=== PATIENT | female | born 1950 | race African-American/Black ===

== ENCOUNTER 2018-10-23 05:56 | Day surgery (SDC) | payer MEDICARE, MEDICAID ==
[2018-10-16 10:54] LABS: BASOPHILS % (AUTO) 1.2 % (0.0-2.0); EOSINOPHILS % (AUTO) 2.4 % (0.0-3.0); HEMATOCRIT 44.8 % (37.0-47.0); HEMOGLOBIN 14.6 G/DL (12.0-16.0); LYMPHOCYTES % (AUTO) 30.9 % (20.0-45.0); MEAN CORPUSCULAR VOLUME 97 FL (80-99); MONOCYTES % (AUTO) 5.9 % (1.0-10.0); NEUTROPHILS % (AUTO) 59.7 % (45.0-75.0); PLATELET COUNT 227 K/UL (150-450); RED BLOOD COUNT 4.59 M/UL (4.20-5.40); RED CELL DISTRIBUTION WIDTH 11.7 % (11.6-14.8); WHITE BLOOD COUNT 8.6 K/UL (4.8-10.8)
[2018-10-16 11:13] LABS: ANION GAP 8 mmol/L (5-15); BLOOD UREA NITROGEN 15 mg/dL (7-18); CALCIUM 10.1 MG/DL (8.5-10.1); CARBON DIOXIDE 29 MMOL/L (21-32); CHLORIDE 102 MMOL/L (98-107); CREATININE 0.8 MG/DL (0.55-1.30); POTASSIUM 4.1 MMOL/L (3.5-5.1); SODIUM 139 MMOL/L (136-145)
--- NOTE | 2018-10-16 19:36 | Cardiology Report ---
APPROVED REPORT EKG Measurement Heart [id number] Sinus bradycardia Otherwise normal ECG
--- NOTE | 2018-10-20 11:55 | Opthalmology H&P ---
Ophthalmology H&P H&P Chief Complaint: decreased vision in right eye HPI Vision Affects Ability to: read, manage personal affairs HPI Narrative Blurry Vision Exam Visual Acuity: OD 20/50 OS 20/40 Tension: OD 17 OS 18 Eye Exam: normal OU: external exam, palpebral fissure-width, marginal reflex distance, levator function, corneas, anterior chambers, fundus exam; findings: lens - Cortical Cataracts OU Assessment/Plan Treatment Plan: cataract extraction w/ lens implant Goals of Treatment: improvement of vision, enhance quality of life Attestation Attestation The risks and benefits of the surgery as well as alternative procedures were explained to the patient in detail. Farooq Torres MD Oct 20, 2018 11:55
--- NOTE | 2018-10-20 11:58 | Pre-Procedure Note/Attestation ---
Pre-Procedure Note/Attestation Complete Prior to Procedure Planned Procedure: right Procedure Narrative: Cataract Extraction With Intraocular Lens Implant Right Eye Indications for Procedure Pre-Operative Diagnosis: Cortical Cataract Right Eye Attestation I attest that I discussed the nature of the procedure; its benefits; risks and complications; and alternatives (and the risks and benefits of such alternatives ), prior to the procedure, with the patient (or the patient's legal business center representative). I attest that, if there was a reasonable possibility of needing a blood transfusion, the patient (or the patient's legal business center representative) was given the [facility] standardized written summary, pursuant to the Ram[place] Blood Safety Act ([place] Health and Safety Code # 1645, as amended). I attest that I re-evaluated the patient just prior to the surgery and that there has been no change in the patient's H&P, except as documented below: Farooq Torres MD Oct 20, 2018 11:58
[2018-10-23] VITALS (10 sets, daily range): BP systolic 15–149; BP diastolic 1–72
[~2018-10-23] VITALS: Ht 171.4 cm; Wt 79.4 kg
[~2018-10-23 05:56] MED LIST: AMLODIPINE BESY10 MG ORAL; HYDROCHLOROTH12.5 M2 ORAL; LISINOPRIL20 MG ORAL; MELOXICAM15 MG PO
[2018-10-23] MEDS: Cyclopentolate 1% Opth Sol 2ml RIGHT EYE SCH ×3 (06:21→06:47)
[2018-10-23] MEDS: Tropicamide 1% Opth 15ml Soln RIGHT EYE SCH ×3 (06:22→06:48)
[2018-10-23] MEDS: Phenylephrine 10% Opth Soln 5ml RIGHT EYE SCH ×3 (06:24→06:48)
[2018-10-23] MEDS: Tobramycin Op Soln 0.3% 5ml RIGHT EYE SCH ×3 (06:24→06:48)
[2018-10-23] MEDS ORDERED: Pilocarpine 1% Opth 15ml Soln ONE (07:00)
[2018-10-23] MEDS ORDERED: Dexamethasone 4mg/ml vial ONE (07:00)
[2018-10-23] MEDS ORDERED: Diclofenac Sod 0.1% Op Soln RIGHT EYE SCH (07:00)
[2018-10-23] MEDS ORDERED: Akten 3.5% 1ml Btl RIGHT EYE ONE (07:00)
[2018-10-23] MEDS ORDERED: Pred Forte 1% Opth Susp 1ml ONE (07:00)
[2018-10-23] MEDS ORDERED: Maxitrol Opth Oint 3.5gm ONE (07:00)
[2018-10-23] MEDS ORDERED: Tetracaine 0.5% Opth 4ml Soln RIGHT EYE ONE (07:00)
[2018-10-23] MEDS ORDERED: Proparacaine 0.5% Opth Soln 15ml RIGHT EYE ONE (07:00)
--- NOTE | 2018-10-23 08:20 | Anethesia Preoperative Eval ---
Anesthesia Pre-op PMH/ROS General Date of Evaluation: Oct 23, 2018 Time of Evaluation: 08:09 Anesthesiologist: Carlo ASA Score: ASA 2 Mallampati Score Class I : Soft palate, uvula, fauces, pillars visible Class II: Soft palate, uvula, fauces visible Class III: Soft palate, base of uvula visible Class IV: Only hard plate visible Mallampati Classification: Class II Surgeon: Melissa Diagnosis: R eye cataracrt Surgical Procedure: R eye cataract extraction Anesthesia History: none Social History: smoking - h/o Family History: no anesthesia problems Allergies: Coded Allergies: No Known Allergies (Unverified , 10/16/18) Medications: see eMAR Patient NPO?: Yes Past Medical History Cardiovascular: Reports: HTN; Denies: CAD, OR, valve dz, arrhythmia, other Pulmonary: Denies: asthma, COPD, SHELLI, other Gastrointestinal/Genitourinary: Reports: GERD; Denies: CRI, ESRD, other Neurologic/Psychiatric: Denies: dementia, CVA, depression/anxiety, TIA, other Endocrine: Denies: DM, hypothyroidism, steroids, other HEENT: Reports: cataract (L), cataract (R); Denies: glaucoma, NENANA (L), NENANA (R), other Hematology/Immune: Denies: anemia, DVT, bleeding disorder, other Musculoskeletal/Integumentary: Denies: OA, RA, DJD, DDD, edema, other PMH Narrative: as above PSxH Narrative: Cholecystectomy Anesthesia Pre-op Phys. Exam Physician Exam Last Vital Signs Date Time Temp Pulse Resp B/P (MAP) Pulse Ox O2 Delivery O2 Flow Rate FiO2 10/23/18 06:29 97.7 66 20 148/70 100 Room Air Constitutional: NAD Neurologic: CN 2-12 intact Cardiovascular: RRR, no M/R/G Respiratory: CTA Gastrointestinal: other Airway Exam Mallampati Score: Class II MO: full Neck: flexible ROM: full Teeth: missing Dentures: no upper, no lower Anesthesia Pre-op A/P Labs see chart Studies Pre-op Studies: EKG - NSR Risk Assessment & Plan Assessment: ASA 2 Plan: MAC Status Change Before Surgery: No Pre-Antibiotics Drug: Nathan Cook MD Oct 23, 2018 08:20
[2018-10-23] MEDS ORDERED: Midazolam 2mg/2ml Inj ONE (08:23)
[2018-10-23] MEDS ORDERED: LR 1000ml ONE (08:30)
[2018-10-23] MEDS ORDERED: Propofol 200mg/20ml IV ONE (08:30)
[2018-10-23] MEDS ORDERED: Sterile Water Irrig 1000ml IRRIG ONE (08:30)
[2018-10-23] MEDS ORDERED: fentaNYL 100 mcg/2 mL IV ONE (08:30)
[2018-10-23] MEDS ORDERED: NS Irrig 1000ml ONE (08:30)
[2018-10-23] MEDS ORDERED: LR 1000ml 1,000 ML IVLG SCH (08:38)
[2018-10-23] MEDS ORDERED: fentaNYL 100 mcg/2 mL IV PRN (08:45)
--- NOTE | 2018-10-23 09:02 | Immediate Post-Op Evaluation ---
Immediate Post-Op Evalulation Immediate Post-Op Evalulation Procedure: R eye cataract extraction with IOL Date of Evaluation: Oct 23, 2018 Time of Evaluation: 09:01 IV Fluids: 300 Blood Products: none Estimated Blood Loss: none Urinary Output: none Blood Pressure Systolic: 149 Blood Pressure Diastolic: 68 Pulse Rate: 76 Respiratory Rate: 20 O2 Sat by Pulse Oximetry: 98 Temperature (Fahrenheit): 97.6 Pain Score (1-10): 1 Nausea: No Vomiting: No Complications none Patient Status: awake, patent, none Hydration Status: adequate Nathan Matos MD Oct 23, 2018 09:02
--- NOTE | 2018-10-23 10:25 | 48 Hour Post Anesthesia Eval ---
Post Anesthesia Evaluation Procedure: R eye cataract extraction with IOL Date of Evaluation: Oct 23, 2018 Time of Evaluation: 10:24 Blood Pressure Systolic: 122 0: 64 Pulse Rate: 62 Respiratory Rate: 20 Temperature (Fahrenheit): 97.6 O2 Sat by Pulse Oximetry: 97 Airway: patent Nausea: No Vomiting: No Pain Intensity: 1 Hydration Status: adequate Cardiopulmonary Status: stable Mental Status/LOC: patient returned to baseline Follow-up Care/Observations: n/a Post-Anesthesia Complications: none Follow-up care needed: ready to discharge Nathan Matos MD Oct 23, 2018 10:25
[2018-10-23] MEDS ORDERED: BSS 15ml BTL ONE (10:36)
[2018-10-23] MEDS ORDERED: Sodium Hyaluronate 14 mg/ml 0.85ml ONE (10:36)
[2018-10-23] MEDS ORDERED: EPINEPHrine 1mg/1ml Amp ONE (10:36)
[2018-10-23] MEDS ORDERED: Povidone-Iodine 5% opth solution ONE (10:36)
[2018-10-23] MEDS ORDERED: BSS 500ml btl ONE (10:36)
--- NOTE | 2018-10-23 16:00 | Pre-op HX & Phy Repo 2 SIG ---
DATE OF ADMISSION: 10/23/2018 ANTICIPATED DATE OF SURGERY: Date of surgery scheduled for October 23, 2018. REASON FOR EVALUATION: I was asked by Dr. Farooq Torres to see this 68-year-old female, who is going for elective surgery on the right eye. The patient has cortical cataract of right eye. Please see Ophthalmology History and Physical by Dr. Farooq Torres. PAST MEDICAL HISTORY/REVIEW OF SYSTEMS: Remarkable for hypertension. No heart attack. No stroke. No diabetes. No history of renal insufficiency. No anemia. No respiratory problem. PAST SURGICAL HISTORY: Cholecystectomy. FAMILY HISTORY: Remarkable for mother has hypertension possibly at age of 91 and father from stroke. ALLERGIES: Not known. PRESENT MEDICATIONS: Include amlodipine 10 mg, hydrochlorothiazide, lisinopril 25 mg, meloxicam 15 mg. HABITS: The patient smokes 1 to 8 cigarettes a day. Alcohol occasionally. Street drugs, no. PHYSICAL EXAMINATION: GENERAL: The patient is alert, well-developed, well-nourished female, in her 60s. No acute distress. VITAL SIGNS: Blood pressure 141/72, temperature 96.9, pulse 63, respiration 18, and O2 saturation 99% on room air. SKIN: Warm, clear, dry. No rashes or ulcers. HEENT: Head normocephalic, atraumatic. Eyes, full description per Dr. Farooq Torres. Mouth, no dentures. NECK: No jugular venous distention. Carotids artery +2. Supple. LUNGS: Clear to auscultation and percussion. No rales or rhonchi. HEART: Sinus regular rhythm. No murmur. No S3, S4. ABDOMEN: Soft, benign. Liver and spleen not enlarged. No palpable mass. EXTREMITIES: No edema. No varicose veins. GENITOURINARY TRACT: No dysuria or CVA tenderness. LABORATORY AND DIAGNOSTIC DATA: ECG, normal sinus, bradycardia, rate 58 per minute, otherwise normal ECG. The patient did not eat or drink to be NPO after midnight of Tuesday. Lab work pending. IMPRESSION: 1. Cataract, right eye. 2. Hypertension, controlled. 3. Sinus bradycardia by EKG, asymptomatic. PLAN: Cataract extraction, right eye, with intraocular lens implant per Dr. Farooq Torres. CONCLUSION: The patient is asymptomatic. She has history of hypertension, which is controlled. The patient's EKG is normal. The patient's condition optimized for surgery. Thank you very much, Dr. Torres, for privilege to participate in presurgical care of this interesting patient. Heavenly Alexis M.D. DR: Javi JOB#: [id number] CC:
--- NOTE | 2018-10-24 12:45 | Brief Operative Note ---
Immediate Post Operative Note Operative Note Chief Complaint: blurry vision Pre-op Diagnosis: Cortical Cataract Right Eye Procedure: phaco with IOL Post-op Diagnosis: Pseudophakia Post-op Diagnosis: same as pre-op Findings: consistent w/pre-op dx studies Surgeon: Melissa Anesthesiologist: Carlo Anesthesia: MAC Specimen: none Complications: none Condition: stable Fluids: LR Estimated Blood Loss: none Drains: none Implant(s) used?: Yes Farooq Torres MD Oct 24, 2018 12:45
--- NOTE | 2018-10-24 12:46 | Operative Note - PDOC ---
Operative Note Operative Note Date of Operation/Procedure: Oct 23, 2018 Chief Complaint: blurry vision Pre-op Diagnosis: Cortical Cataract Right Eye Procedure: phaco with IOL Post-op Diagnosis: Pseudophakia Post-op Diagnosis: same as pre-op Operative Findings: consistent w/pre-op dx studies Surgeon: Melissa Anesthesiologist: Carlo Anesthesia: MAC Specimen: none Complications: none Condition: stable Fluids: LR Estimated Blood Loss: none Drains: none Implant(s) used?: Yes Indications for Procedure cataract Description of Procedure This patient has been complaining visually significant cataract in the affected eye with the best corrected visual acuity under moderate glare conditions worse. The patient complains of difficulties with glare in performing activities of daily living and wants to manage personal affairs with comfort and accuracy and see well enough to move with safety at home and outdoors. The risks, benefits and alternatives of the procedure were discussed with the patient in the office prior to scheduling surgery. All questions from the patient were answered after the surgical procedure was explained in detail. The risks of the procedure as explained to the patient include, but are not limited to, pain, infection, bleeding, loss of vision, retinal detachment, need for further surgery, loss of lens nucleus, double vision, etc. Alternative procedures were discussed which include, to do nothing or seek a second opinion. Informed consent for this procedure was obtained from the patient. The patient was referred to a primary care physician for a cardiopulmonary clearance prior to surgery, after proper evaluation was done patient was properly scheduled for outpatient surgery. The patient was brought to the operating room where the anesthesiologist established I.V. lines and cardiac monitoring leads. Mild intravenous sedation was administered. The patient was then prepared with a 5% solution of povidone -iodine to the conjunctival fornix and lashes, and a 5% solution of povidone- iodine to the lids and periorbital skin. The patient was then draped in the usual sterile fashion. A lid speculum was then placed in the operative eye. A keratome blade was then used to create a biplanar incision into the anterior chamber. Viscoelastics was then instilled into the anterior chamber. A curvilinear capsulorrhexis was then fashioned with an utrata forceps. BSS and a G 27 cannula was used hydrodissection and hydro delineation the lens nucleus. Paracentesis incision was made at 3 o'clock with sharp blade. The phacoemulsification unit, after being properly adjusted and tested, was then used to emulsify the nucleus. Residual cortical material was aspirated with the irrigation and aspiration unit. Healon was then instilled into the anterior chamber. The corneal wound was then enlarged to the size of the optic with the meme keratome blade. The intraocular lens was then inspected for right power and size and thought to be satisfactory. Then the lens was gently placed in the capsular bag. Positioning within the capsular bag was confirmed by direct visualization. Optic centration was accomplished with a Sinskey hook. Viscoelastics was removed from the anterior chamber using the irrigation and aspiration unit. The corneal wound was then tested for leaks and none were found. The lid speculum were then removed. Sponge and needle counts were correct. An eye patch and shield were placed over the operative eye. The patient was taken to the recovery room in stable condition. There were no complications. The patient tolerated the procedure well. The patient was then transferred to the ambulatory surgery unit in stable and satisfactory condition , was given detailed written instructions and asked to follow up in the office the next day. Farooq Torres MD Oct 24, 2018 12:46
== END 2018-10-23 10:10 | disposition home or self-care (01) ==
LOC: SUR 05:56
DX: H25.011 Cortical age-related cataract, right eye (principal); I10 Essential (primary) hypertension; R00.1 Bradycardia, unspecified; F17.210 Nicotine dependence, cigarettes, uncomplicated; Z79.899 Other long term (current) drug therapy; Z90.49 Acquired absence of other specified parts of digestive tract; Z82.49 Family history of ischemic heart disease and other diseases of the circulatory system; Z82.3 Family history of stroke; K21.9 Gastro-esophageal reflux disease without esophagitis
CPT/HCPCS: 36415; 66984; 80048; 85025; 93005; J0171; J1100; J2250; J2704; J3010; J3370; V2632; 94003; 94150

== ENCOUNTER 2018-12-29 05:47 | Day surgery (SDC) | payer MEDICARE, MEDICAID ==
--- NOTE | 2018-12-28 14:49 | Opthalmology H&P ---
Ophthalmology H&P H&P Chief Complaint: decreased vision in left eye HPI Vision Affects Ability to: read, manage personal affairs HPI Narrative Blurry vision Exam Visual Acuity: OD 20/30 OS 20/100 Tension: OD 21 OS 19 Eye Exam: normal OU: external exam, palpebral fissure-width, marginal reflex distance, levator function, corneas, anterior chambers, lens - Cortical Cataract OS, fundus exam; findings: lens - Cortical Cataract OS Assessment/Plan Treatment Plan: cataract extraction w/ lens implant Goals of Treatment: improvement of vision, enhance quality of life Attestation Attestation The risks and benefits of the surgery as well as alternative procedures were explained to the patient in detail. Farooq Torres MD Dec 28, 2018 14:49
--- NOTE | 2018-12-28 14:50 | Pre-Procedure Note/Attestation ---
Pre-Procedure Note/Attestation Complete Prior to Procedure Planned Procedure: left Procedure Narrative: Cataract extraction with intraocular lens implant left eye Indications for Procedure Pre-Operative Diagnosis: Cortical Cataract left eye Attestation I attest that I discussed the nature of the procedure; its benefits; risks and complications; and alternatives (and the risks and benefits of such alternatives ), prior to the procedure, with the patient (or the patient's legal inside sales account representative). I attest that, if there was a reasonable possibility of needing a blood transfusion, the patient (or the patient's legal inside sales account representative) was given the [facility] standardized written summary, pursuant to the Ramírez [place] Blood Safety Act ([place] Health and Safety Code # 1645, as amended). I attest that I re-evaluated the patient just prior to the surgery and that there has been no change in the patient's H&P, except as documented below: Farooq Torres MD Dec 28, 2018 14:50
[~2018-12-29] VITALS: Ht 172.7 cm; Wt 83.9 kg
[2018-12-29] VITALS (8 sets, daily range): BP systolic 120–146; BP diastolic 67–73
[2018-12-29] MEDS ORDERED: Maxitrol Opth Oint 3.5gm ONE (07:00)
[2018-12-29] MEDS ORDERED: Tetracaine 0.5% Opth 4ml Soln LEFT EYE ONE (07:00)
[2018-12-29] MEDS ORDERED: Pilocarpine 1% Opth 15ml Soln ONE (07:00)
[2018-12-29] MEDS ORDERED: Akten 3.5% 1ml Btl LEFT EYE ONE (07:00)
[2018-12-29] MEDS ORDERED: Proparacaine 0.5% Opth Soln 15ml LEFT EYE ONE (07:00)
[2018-12-29] MEDS ORDERED: Dexamethasone 4mg/ml vial ONE (07:00)
[2018-12-29] MEDS ORDERED: Pred Forte 1% Opth Susp 1ml ONE (07:00)
[2018-12-29] MEDS: Phenylephrine 10% Opth Soln 5ml LEFT EYE SCH ×3 (07:06→07:32)
[2018-12-29] MEDS: Tobramycin Op Soln 0.3% 5ml LEFT EYE SCH ×3 (07:06→07:32)
[2018-12-29] MEDS: Diclofenac Sod 0.1% Op Soln LEFT EYE SCH ×3 (07:06→07:32)
[2018-12-29] MEDS: Tropicamide 1% Opth 15ml Soln LEFT EYE SCH ×3 (07:06→07:32)
[2018-12-29] MEDS: Cyclopentolate 1% Opth Sol 2ml LEFT EYE SCH ×3 (07:06→07:32)
[2018-12-29] MEDS ORDERED: Carbachol 0.01% Op Soln 1.5ml vial ONE (07:19)
[2018-12-29] MEDS ORDERED: EPINEPHrine 1mg/1ml Amp ONE (07:19)
[2018-12-29] MEDS ORDERED: Lidocaine 4% Amp ONE (07:19)
[2018-12-29] MEDS ORDERED: Lidocaine 2% MPF 5ml Vial INJ ONE (07:19)
[2018-12-29] MEDS ORDERED: acetaZOLAMIDE 500mg Inj ONE (07:19)
[2018-12-29] MEDS ORDERED: BSS 500ml btl ONE (07:20)
[2018-12-29] MEDS ORDERED: Sodium Hyaluronate 14 mg/ml 0.85ml ONE (07:21)
[2018-12-29] MEDS ORDERED: BSS 15ml BTL ONE (07:21)
[2018-12-29] MEDS ORDERED: Povidone-Iodine 5% opth solution ONE (07:21)
[2018-12-29] MEDS ORDERED: Bupivacaine 0.75% 30ml vial INJ ONE (07:21)
--- NOTE | 2018-12-29 07:55 | Anethesia Preoperative Eval ---
Anesthesia Pre-op PMH/ROS General Date of Evaluation: Dec 29, 2018 Time of Evaluation: 07:52 Anesthesiologist: mariajose ASA Score: ASA 3 Mallampati Score Class I : Soft palate, uvula, fauces, pillars visible Class II: Soft palate, uvula, fauces visible Class III: Soft palate, base of uvula visible Class IV: Only hard plate visible Mallampati Classification: Class II Surgeon: katie Diagnosis: cortical cataract left eye Surgical Procedure: cataract extraction w/ iol implant left eye Anesthesia History: none Social History: current smoker Family History: no anesthesia problems Allergies: Coded Allergies: No Known Allergies (Unverified , 10/16/18) Medications: see eMAR Patient NPO?: Yes Past Medical History Cardiovascular: Reports: HTN, arrhythmia - sinus bradycardia PSxH Narrative: cataract extraction, cholecystectomy, tonsillectomy Anesthesia Pre-op Phys. Exam Physician Exam Last Vital Signs Date Time Temp Pulse Resp B/P (MAP) Pulse Ox O2 Delivery O2 Flow Rate FiO2 12/29/18 07:22 Room Air 12/29/18 07:13 96.6 61 18 120/73 95 Constitutional: NAD Neurologic: CN 2-12 intact Cardiovascular: RRR Respiratory: CTA Gastrointestinal: S/NT/ND Airway Exam Mallampati Score: Class II MO: limited Neck: flexible TMD: 2fb ROM: limited Anesthesia Pre-op A/P Studies Pre-op Studies: EKG - sinus bradycardia Risk Assessment & Plan Assessment: asa3 Plan: mac Status Change Before Surgery: No Pre-Antibiotics Drug: Ermelinda Srivastava MD Dec 29, 2018 07:55
[2018-12-29] MEDS ORDERED: Midazolam 2mg/2ml Inj IVP PRN (08:00)
[2018-12-29] MEDS ORDERED: DiphenhydrAMINE 50mg/ml Inj IVP PRN (08:00)
[2018-12-29] MEDS ORDERED: Atropine Inj 1mg/10ml Syr IV PRN (08:00)
[2018-12-29] MEDS ORDERED: fentaNYL 100 mcg/2 mL IV PRN (08:00)
[2018-12-29] MEDS ORDERED: fentaNYL 100 mcg/2 mL IV ONE (08:30)
[2018-12-29] MEDS ORDERED: LR 1000ml ONE (08:30)
[2018-12-29] MEDS ORDERED: NS Irrig 1000ml ONE (08:30)
[2018-12-29] MEDS ORDERED: Sterile Water Irrig 1000ml IRRIG ONE (08:30)
[2018-12-29] MEDS ORDERED: Midazolam 2mg/2ml Inj ONE (08:30)
--- NOTE | 2018-12-29 10:19 | Immediate Post-Op Evaluation ---
Immediate Post-Op Evalulation Immediate Post-Op Evalulation Procedure: cataract extraction w/iol implant left eye Date of Evaluation: Dec 29, 2018 Time of Evaluation: 10:11 IV Fluids: 700ml lr Blood Products: none Estimated Blood Loss: negligible Blood Pressure Systolic: 146 Blood Pressure Diastolic: 67 Pulse Rate: 62 Respiratory Rate: 18 O2 Sat by Pulse Oximetry: 100 Temperature (Fahrenheit): 97.6 Pain Score (1-10): 0 Nausea: No Vomiting: No Complications none Patient Status: awake, reacts, patent Hydration Status: adequate Drug: Ermelinda Srivastava MD Dec 29, 2018 10:19
--- NOTE | 2018-12-29 10:21 | 48 Hour Post Anesthesia Eval ---
Post Anesthesia Evaluation Procedure: cataract extraction w/iol implant left eye Date of Evaluation: Dec 29, 2018 Time of Evaluation: 10:13 Blood Pressure Systolic: 145 0: 67 Pulse Rate: 62 Respiratory Rate: 18 Temperature (Fahrenheit): 97.6 O2 Sat by Pulse Oximetry: 100 Airway: patent Nausea: No Vomiting: No Pain Intensity: 0 Hydration Status: adequate Cardiopulmonary Status: stable Mental Status/LOC: patient returned to baseline Post-Anesthesia Complications: none Follow-up care needed: N/A Ermelinda Mishra MD Dec 29, 2018 10:21
--- NOTE | 2019-01-01 10:30 | Brief Operative Note ---
Immediate Post Operative Note Operative Note Chief Complaint: Blurry vision Pre-op Diagnosis: Cortical Cataract left eye Procedure: Cataract Extraction with Intraocular lens Implant left eye Post-op Diagnosis: Pseudophakia Left eye Post-op Diagnosis: same as pre-op Surgeon: Farooq Torres MD Anesthesiologist: Ermelinda Pfeiffer MD Anesthesia: MAC Specimen: none Complications: none Condition: stable Fluids: LR Estimated Blood Loss: none Drains: none Implant(s) used?: Yes Farooq Torres MD Jan 01, 2019 10:30
--- NOTE | 2019-01-01 10:38 | Operative Note - PDOC ---
Operative Note Operative Note Date of Operation/Procedure: Dec 29, 2018 Chief Complaint: Blurry vision Pre-op Diagnosis: Cortical Cataract left eye Procedure: Cataract Extraction with Intraocular lens Implant left eye Post-op Diagnosis: Pseudophakia Left eye Post-op Diagnosis: same as pre-op Surgeon: Farooq Torres MD Anesthesiologist: Ermelinda Pfeiffer MD Anesthesia: MAC Specimen: none Complications: none Condition: stable Fluids: LR Estimated Blood Loss: none Drains: none Implant(s) used?: Yes - IOL Indications for Procedure Cortical Cataract left eye Description of Procedure This patient has been complaining visually significant cataract in the left eye with the best corrected visual acuity of 20/100 under moderate glare conditions worse. The patient complains of difficulties with glare in performing activities of daily living and wants to manage personal affairs with comfort and accuracy and see well enough to move with safety at home and outdoors. The risks, benefits and alternatives of the procedure were discussed with the patient in the office prior to scheduling surgery. All questions from the patient were answered after the surgical procedure was explained in detail. The risks of the procedure as explained to the patient include, but are not limited to, pain, infection, bleeding, loss of vision, retinal detachment, need for further surgery, loss of lens nucleus, double vision, etc. Alternative procedures were discussed which include, to do nothing or seek a second opinion. Informed consent for this procedure was obtained from the patient. The patient was referred to a primary care physician for a cardiopulmonary clearance prior to surgery, after proper evaluation was done patient was properly scheduled for outpatient surgery. The patient was brought to the operating room where the anesthesiologist established I.V. lines and cardiac monitoring leads. Mild intravenous sedation was administered. The patient was then prepared with a 5% solution of povidone -iodine to the conjunctival fornix and lashes, and a 5% solution of povidone- iodine to the lids and periorbital skin. The patient was then draped in the usual sterile fashion. A lid speculum was then placed in the operative eye. A keratome blade was then used to create a biplanar incision into the anterior chamber. Viscoelastics was then instilled into the anterior chamber. A capsulorrhexis was then fashioned with an utrata forceps A G 27 cannula was used to hydrodissect and hydro delineate the lens nucleus. Paracentesis incision was made at 3 o'clock with sharp blade. The phacoemulsification unit, after being properly adjusted and tested, was then used to emulsify the nucleus. Residual cortical material was aspirated with the irrigation and aspiration unit. Healon was then instilled into the anterior chamber. The corneal wound was then enlarged to the size of the optic with the meme keratome blade. The intraocular lens was then inspected for right power and size and thought to be satisfactory. Then the lens was gently placed in the capsular bag. Positioning within the capsular bag was confirmed by direct visualization. Optic centration was accomplished with a Sinskey hook. Viscoelastics was removed from the anterior chamber using the irrigation and aspiration unit. The corneal wound was then tested for leaks and none were found. The lid speculum were then removed. Sponge and needle counts were correct. An eye patch and shield were placed over the operative eye. The patient was taken to the recovery room in stable condition. There were no complications. The patient tolerated the procedure well. The patient was then transferred to the ambulatory surgery unit in stable and satisfactory condition , was given detailed written instructions and asked to follow up in the office the next day. Farooq Torres MD Jan 01, 2019 10:38
== END 2018-12-29 11:05 | disposition home or self-care (01) ==
LOC: SUR 05:47
DX: H25.012 Cortical age-related cataract, left eye (principal); F17.200 Nicotine dependence, unspecified, uncomplicated; I10 Essential (primary) hypertension; Z90.49 Acquired absence of other specified parts of digestive tract; R00.1 Bradycardia, unspecified
CPT/HCPCS: 66984; J0171; J1100; J1120; J2250; J3010; J3370; V2632; 94003; 94150